=== PATIENT | female | born 1940 | race Hispanic/Latino ===

== ENCOUNTER 2016-11-08 19:45 | Emergency (ER) | payer MEDICARE, MEDICAID ==
[2016-11-08 21:14] LABS: CALCIUM LEVEL 9.2 MG/DL (8.8-10.2); CREATININE FOR GFR 1.34 MG/DL (0.55-1.02); GLOMERULAR FILTRATION RATE 40.7 (>39)
[2016-11-08 21:29] LABS: POTASSIUM SERUM 5.8 MEQ/L (3.5-5.1)
[2016-11-08] MEDS ORDERED: DEXTROSE 50% 50 ML SYRINGE As Ordered ONE ×2 (21:42→23:14)
[2016-11-08] MEDS ORDERED: HumuLIN R (REGULAR) INSULIN (NovoLIN R) **100U/ML** PER UNIT As Ordered ONE (21:43)
--- NOTE | 2016-11-08 22:08 | ECGEPIP ---
Stationary ECG Study [facility] - ED Test Date: 2016-11-08 Pat Name: WILD TRISTAN Department: Room: - Gender: F Counter Hop: JoB: 1940 Requested By: BAIRON BRYANT Order Number: [id number] Reading MD: Ervin Maxwell Measurements Intervals Newman Rate: 68 P: 70 SD: 142 QRS: 51 QRSD: 86 T: 88 QT: 365 QTc: 391 Interpretive Statements SINUS RHYTHM NONSPECIFIC T-WAVE ABNORMALITY Electronically Signed On 11-08-2016 22:07:29 EST by Ervin Maxwell
[2016-11-08] MEDS ORDERED: SOD POLYSTYRENE SULFONATE SUSP 15 GM/60 ML UD As Ordered ONE (22:55)
--- NOTE | 2016-11-09 01:12 | EDDOCDS ---
Nurse's Notes [facility] Name: Deedee Arreaga Age: 76 yrs Sex: Female : 1940 Arrival Date: 11/08/2016 Time: 19:45 Bed 8 Private MD: Unknown, Family Dr Diagnosis: Hyperkalemia Presentation: 11/08 19:52 Presenting complaint: pt's son states that she was seen at Dr. Barnard's office. Pt's ms18 potassium was high, 6.1 per pt's son. PT instructed to come here and be seen by ER staff. Adult Sepsis Screening: The patient does not have new or worsening altered mentation. Patient's respiratory rate is less than 22. Systolic blood pressure is greater than 100. Patient has a qSOFA score of 0- Negative Sepsis Screen. Suicide/Homicide risk assessment- the patient denies having any suicidal and/or homicidal ideations and does not present with any other emotional, behavioral or mental health complaints. Status: Patient is not a nutrition services worker or dependent. Transition of care: patient was not received from another setting of care. 19:52 Acuity: CINTHYA Level 3 ms18 19:52 Method Of Arrival: Walkin/Carried/Asstd ms18 Triage Assessment: 19:57 General: Appears in no apparent distress, comfortable, Behavior is appropriate for age, ms18 cooperative. Pain: Denies pain. Neurological: Level of Consciousness is awake, alert, obeys commands. Respiratory: Airway is patent Respiratory effort is even, unlabored. Derm: Skin is pink, warm & dry. normal. Historical: - Allergies: no known allergies; - Home Meds: 1. lisinopril 20 mg Oral tab 1 tab once daily 2. carvedilol 25 mg oral tab 1 tab daily 3. aspirin 81 mg Oral tab 1 tab once daily - PMHx: Hypertension; - PSHx: none; - Social history: Smoking status: Patient states former smoker of tobacco. Preferred Language: Luxembourgish. - Family history: No immediate family members are acutely ill. - : The pt / caregiver states he / she is not on anticoagulants. Home medication list is obtained from family members. - Exposure Risk Screening:: None identified. Screenin/24 00:57 Screening information is obtained from the patient, family members. Fall risk: No risks nn1 identified. Assistance ADL's: requires no assistance with activities of daily living. Abuse/DV Screen: The patient / caregiver reports he/she is: not in a situation that causes fear, pain or injury. Nutritional screening: No deficits noted. Advance Directives: Currently, there is no health care proxy. home support is adequate. Assessment: 11/08 20:42 General: Appears in no apparent distress, comfortable, Behavior is appropriate for age, nn1 cooperative, Family reports patients blood pressure is high due to anxiety. . Pain: Denies pain. Neurological: Level of Consciousness is awake, alert, obeys commands, Oriented to person, place, time. Cardiovascular: Capillary refill < 3 seconds Chest pain is denied. Respiratory: Airway is patent Respiratory effort is even, unlabored, Respiratory pattern is regular, symmetrical, Breath sounds are clear bilaterally. GI: Abdomen is non- distended Bowel sounds present X 4 quads. Denies nausea, vomiting. Derm: Skin is pink, warm & dry. 23:02 General: Appears in no apparent distress, comfortable, Behavior is appropriate for age, nn1 cooperative. General: Patient reports she is getting bilateral leg cramps. Fluids infusing per order. Patient given water to drink per provider. . Neurological: Level of Consciousness is awake, alert, obeys commands. Respiratory: Airway is patent Respiratory effort is even, unlabored, Respiratory pattern is regular, symmetrical. Derm: Skin is pink, warm & dry. 23:54 General: Blood drawn, patient assisted to restroom. Reports her legs continue to cramp. nn1 Patient made comfortable. . 11/09 00:27 General: Appears in no apparent distress, comfortable, Behavior is appropriate for age, nn1 cooperative. Neurological: Level of Consciousness is awake, alert, obeys commands. GI: Reports diarrhea. Derm: Skin is pink, warm & dry. 00:57 General: Appears in no apparent distress, comfortable, Behavior is appropriate for age, nn1 cooperative. Neurological: Level of Consciousness is awake, alert, obeys commands. Respiratory: Airway is patent Respiratory effort is even, unlabored, Respiratory pattern is regular, symmetrical. GI: Abdomen is non- distended Reports diarrhea. Derm: Skin is pink, warm & dry. Musculoskeletal: Circulation, motion, and sensation intact Range of motion intact in all extremities. Vital Signs: 11/08 19:47 BP 227 / 75; Pulse 84; Resp 18 S; Temp 97.1(O); Pulse Ox 100% on R/A; Weight 54.43 kg dd6 (R); Height 4 ft. 10 in. (147.32 cm) (R); 19:57 BP 192 / 74 (man/); ms18 20:29 BP 188 / 76 (auto/); nn1 20:29 Pulse 68 MON; Pulse Ox 100% ; nn1 20:44 BP 177 / 77 (auto/); nn1 20:44 Pulse 66 MON; Pulse Ox 99% ; nn1 20:59 BP 192 / 72 (auto/); nn1 20:59 Pulse 70 MON; Pulse Ox 100% ; nn1 21:14 BP 203 / 81 (auto/); nn1 21:14 Pulse 68 MON; Pulse Ox 99% ; nn1 21:18 BP 205 / 81 (auto/); nn1 21:18 Pulse 68 MON; Pulse Ox 99% ; nn1 21:22 BP 191 / 77 (auto/); nn1 21:22 Pulse 70 MON; Pulse Ox 99% ; nn1 11/09 01:08 Pulse 78; Resp 18; Temp 98.3(O); Pulse Ox 98% on R/A; Pain 0/10; nn1 01:10 BP 132 / 78 (man/); ning 11/08 19:47 Body Mass Index 25.08 (54.43 kg, 147.32 cm) dd6 Vitals: 11/08 19:47 Log In Time: November 08, 2016 at 19:45. dd6 ED Course: 19:46 Patient visited by Kaleb Nuñez PCA. dd6 19:46 Patient moved to Waiting dd6 19:47 Unknown, Family Dr is Private Physician. dd6 19:48 Patient moved to Pre RCE dd6 19:55 Triage Initiated ms18 20:01 Shikha Rosales,RN is Primary Nurse. pml 20:01 Patient moved to 8 pml 20:06 [facility] le 20:16 Patient visited by Nannette Lama PCA. ning 20:16 Pt greeted and oriented to ED. Patient advised of names of staff involved in care, ning location of call chau, wait times and NPO status. Accompanied by Family Member, Patient has correct armband on for positive identification. Placed in gown. Bed in low position. Call light in reach. Side rails up X2. craniologist on. Pulse ox on. NIBP on. 20:16 EKG done. (by ED staff). Reviewed by Candis BRYANT. ning 20:28 Patient visited by Candis Ashraf FNP. le 20:56 Inserted saline lock: 22 gauge in left antecubital area and blood collected. The nn1 patient tolerated the procedure well. 21:10 [facility] Payment Agreement was scanned into [employer] and attached to record. zo 21:28 Patient visited by Maryellen Eckert RN. nn1 22:08 EKG-ADULT Returned. EDMS 22:35 Inserted saline lock: 20 gauge in right hand. js15 22:40 Patient visited by Sarah Tobias RN. js15 22:48 Primary Nurse role handed off by Shikha Rosales RN ning 23:19 Patient visited by Maryellen Eckert RN. nn1 23:55 Patient visited by Maryellen Eckert RN. nn1 11/09 00:27 Patient visited by Maryellen Eckert RN. nn1 00:51 Faheem Xiong DO is Attending Physician. cs11 00:58 The patient / caregiver is instructed regarding the plan of care and ED course. nn1 00:58 No procedures done that require assistance. nn1 01:10 Patient visited by Nannette Lama PCA. ning Administered Medications: 11/08 21:45 Drug: Insulin Regular Human 10 units [insulin regular human 100 unit/mL injection nn1 solution (0.1 mL)] {Co-Signature: sls1 (Em Ontiveros RN).} Route: IVP; Site: left antecubital; 22:39 Drug: D50W 50 ml [dextrose 50 % in water (D50W) intravenous syringe (50 mL)] Route: js15 IVP; Site: right hand; 23:02 Drug: Polystyrene 30 grams [sodium polystyrene sulfonate 15 gram/60 mL oral suspension nn1 (120 mL)] Route: PO; 23:02 Drug: NS 0.9% 1000 ml [sodium chloride 0.9 % intravenous solution] Route: IV; Rate: nn1 bolus; Site: right hand; 23:18 Drug: D50W 50 ml [dextrose 50 % in water (D50W) intravenous syringe (50 mL)] Route: nn1 IVP; Site: right hand; Point of Care Testing: Blood Glucose: 23:18 Blood Glucose: 36 mg/dL; nn1 23:54 Blood Glucose: 78 mg/dL; nn1 Ranges: Order Results: Lab Order: BMP; SPEC'11/08/16 20:26 Test: GLUCOSE, FASTING; Value: 90; Range: 83-110; Units: MG/DL; Status: F Test: BLOOD UREA NITROGEN; Value: 34; Range: 7-18; Abnormal: Above high normal; Units: MG/DL; Status: F Test: CREATININE FOR GFR; Value: 1.34; Range: 0.55-1.02; Abnormal: Above high normal; Units: MG/DL; Status: F Test: GLOMERULAR FILTRATION RATE; Value: 40.7; Range: >39; Status: F Test: SODIUM LEVEL; Value: 142; Range: 136-145; Units: MEQ/L; Status: F Test: POTASSIUM SERUM; Value: 5.8; Range: 3.5-5.1; Abnormal: Above high normal; Units: MEQ/L; Status: F Test: CHLORIDE LEVEL; Value: 109; Range: 98-107; Abnormal: Above high normal; Units: MEQ/L; Status: F Test: CARBON DIOXIDE LEVEL; Value: 28; Range: 21-32; Units: MEQ/L; Status: F Test: ANION GAP; Value: 5; Range: 8-16; Abnormal: Below low normal; Units: MEQ/L; Status: F Test: CALCIUM LEVEL; Value: 9.2; Range: 8.8-10.2; Units: MG/DL; Status: F Test Note: ; Units are mL/min/1.73 m2 Chronic Kidney Disease Staging per NKF: Stage I & II GFR >=60 Normal to Mildly Decreased Stage III GFR 30-59 Moderately Decreased Stage IV GFR 15-29 Severely Decreased Stage V GFR <15 Very Little GFR Left ESRD GFR <15 on LUGGAGE LINER Lab Order: POTASSIUM LEVEL; SPEC'11/08/16 23:52 Test: POTASSIUM SERUM; Value: 4.7; Range: 3.5-5.1; Units: MEQ/L; Status: F Lab Order: Fingerstick Blood Sugar; SPEC'11/08/16 23:13 Test: BEDSIDE GLUCOSE; Value: 36; Range: 83-110; Abnormal: Critical Low; Units: MG/DL; Status: F Lab Order: Fingerstick Blood Sugar; SPEC'M 11/08/16 23:47 Test: BEDSIDE GLUCOSE; Value: 78; Range: 83-110; Abnormal: Below low normal; Units: MG/DL; Status: F Outcome: 11/09 00:51 Discharge ordered by Provider. 11 00:58 Discharge Assessment: Patient awake, alert and oriented x 3. No cognitive and/or nn1 functional deficits noted. Patient verbalized understanding of disposition instructions. patient administered narcotics - no. The following High Risk Discharge criteria are identified: None. Discharged to home ambulatory, with family. Condition: stable. No special radiology studies were completed. Property :Personal belongings accompany Pt. 01:11 Patient left the ED. nn1 Signatures: Dispatcher [employer] EDMS Yany Tan Lisa, SELF PAY SPECIALIST SELF PAY SPECIALIST le Kaleb Nuñez, ASTRONAUT MISSION SPECIALIST ASTRONAUT MISSION SPECIALIST dd6 Nannette Lama, ASTRONAUT MISSION SPECIALIST ASTRONAUT MISSION SPECIALIST ning Delmis Lion,RN RN Faheem Fairbanks, DO cs11 Adenike Michael RN RN ms18 Sarah Tobias RN RN js15 Maryellen EckertRN COLE nn1 Em Ontiveros RN sls1 Corrections: (The following items were deleted from the chart) 11/08 22:40 22:39 D50W 50 ml IVP in left hand js15 js15 MTDD
--- NOTE | 2016-11-09 01:12 | EDDOCDS ---
Physician Documentation [facility] Name: Deedee Arreaga Age: 76 yrs Sex: Female : 1940 Arrival Date: 11/08/2016 Time: 19:45 Bed 8 Private MD: Unknown, Family Dr Disposition: 11/09/16 00:51 Discharged to Home/Self Care. Impression: Hyperkalemia. - Condition is Stable. - Medication Reconciliation, Local Pharmacy Hours form. - Follow up: Private Physician; When: Call to arrange an appointment; Reason: Recheck today's complaints. - Problem is new. - Symptoms are resolved. Historical: - Allergies: no known allergies; - Home Meds: 1. lisinopril 20 mg Oral tab 1 tab once daily 2. carvedilol 25 mg oral tab 1 tab daily 3. aspirin 81 mg Oral tab 1 tab once daily - PMHx: Hypertension; - PSHx: none; - Social history: Smoking status: Patient states former smoker of tobacco. Preferred Language: Icelandic. - Family history: No immediate family members are acutely ill. - : The pt / caregiver states he / she is not on anticoagulants. Home medication list is obtained from family members. - Exposure Risk Screening:: None identified. Vital Signs: 11/08 19:47 BP 227 / 75; Pulse 84; Resp 18 S; Temp 97.1(O); Pulse Ox 100% on R/A; Weight 54.43 kg / dd6 120 lbs (R); Height 4 ft. 10 in. (147.32 cm) (R); 19:57 BP 192 / 74 (man/); ms18 20:29 BP 188 / 76 (auto/); nn1 20:29 Pulse 68 MON; Pulse Ox 100% ; nn1 20:44 BP 177 / 77 (auto/); nn1 20:44 Pulse 66 MON; Pulse Ox 99% ; nn1 20:59 BP 192 / 72 (auto/); nn1 20:59 Pulse 70 MON; Pulse Ox 100% ; nn1 21:14 BP 203 / 81 (auto/); nn1 21:14 Pulse 68 MON; Pulse Ox 99% ; nn1 21:18 BP 205 / 81 (auto/); nn1 21:18 Pulse 68 MON; Pulse Ox 99% ; nn1 21:22 BP 191 / 77 (auto/); nn1 21:22 Pulse 70 MON; Pulse Ox 99% ; nn1 11/09 01:08 Pulse 78; Resp 18; Temp 98.3(O); Pulse Ox 98% on R/A; Pain 0/10; nn1 01:10 BP 132 / 78 (man/); ning 11/08 19:47 Body Mass Index 25.08 (54.43 kg, 147.32 cm) dd6 MDM: 11/08 20:07 IV Saline Lock ordered. le 20:10 BMP Ordered. EDMS 20:10 ECG WITH READING ER PHYS+CARDIAG ordered. EDMS 21:07 Financial registration complete. zo 21:10 [facility] Payment Agreement was scanned into [employer] and attached to record. zo 21:35 BMP Reviewed. le 21:36 D50W 50 ml IVP once; (1 amp) ordered. le 21:36 Insulin Regular Human 10 units IVP once ordered. le 21:36 Polystyrene Suspension 30 grams PO once ordered. le 22:58 NS 0.9% 1000 ml IV at bolus once ordered. le 22:59 Accucheck ordered. le 23:06 [facility] ordered. le 23:14 D50W 50 ml IVP once; (1 amp) ordered. le 23:14 [facility] complete. tmm1 23:15 POTASSIUM LEVEL Ordered. EDMS 23:32 Fingerstick Blood Sugar Reviewed. le 23:33 Accucheck ordered. le 23:35 2 GRAM SODIUM+DIET ordered. EDMS 23:59 Fingerstick Blood Sugar Ordered. EDMS 11/09 00:03 Fingerstick Blood Sugar Reviewed. le 00:49 POTASSIUM LEVEL Reviewed. cs11 Point of Care Testing: Blood Glucose: 11/08 23:18 Blood Glucose: 36 mg/dL; nn1 23:54 Blood Glucose: 78 mg/dL; nn1 Ranges: Administered Medications: 21:45 Drug: Insulin Regular Human 10 units [insulin regular human 100 unit/mL injection nn1 solution (0.1 mL)] {Co-Signature: sls1 (Em Ontiveros RN).} Route: IVP; Site: left antecubital; 22:39 Drug: D50W 50 ml [dextrose 50 % in water (D50W) intravenous syringe (50 mL)] Route: js15 IVP; Site: right hand; 23:02 Drug: Polystyrene 30 grams [sodium polystyrene sulfonate 15 gram/60 mL oral suspension nn1 (120 mL)] Route: PO; 23:02 Drug: NS 0.9% 1000 ml [sodium chloride 0.9 % intravenous solution] Route: IV; Rate: nn1 bolus; Site: right hand; 23:18 Drug: D50W 50 ml [dextrose 50 % in water (D50W) intravenous syringe (50 mL)] Route: nn1 IVP; Site: right hand; Signatures: Dispatcher [employer] EDMS Yany Tan Lisa, WEATHER FORECASTER WEATHER FORECASTER Faheem Kelley DO DO cs11 McLear, Etelvina, VAULT MANAGER VAULT MANAGER tmm1 Adenike Michael RN RN ms18 Maryellen Eckert RN RN nn1 Sarah Tobias RN js15 Em Ontiveros RN sls1 The chart was reviewed and I authenticate all verbal orders and agree with the evaluation and treatment provided.Attachments: 21:10 [facility] Payment Agreement zo MTDD
[2016-11-10] MEDS ORDERED: LISI-538 PO (11:05)
[2016-11-10] MEDS ORDERED: CARV12.5 PO (11:05)
--- NOTE | 2016-11-11 02:13 | EDDOCDS ---
Physician Documentation [facility] Name: Deedee Arreaga Age: 76 yrs Sex: Female : 1940 Arrival Date: 11/08/2016 Time: 19:45 Bed 8 Private MD: Unknown, Family Dr Disposition: 11/09/16 00:51 Discharged to Home/Self Care. Impression: Hyperkalemia. - Condition is Stable. - Medication Reconciliation, Local Pharmacy Hours form. - Follow up: Private Physician; When: Call to arrange an appointment; Reason: Recheck today's complaints. - Problem is new. - Symptoms are resolved. Historical: - Allergies: no known allergies; - Home Meds: 1. lisinopril 20 mg Oral tab 1 tab once daily 2. carvedilol 25 mg oral tab 1 tab daily 3. aspirin 81 mg Oral tab 1 tab once daily - PMHx: Hypertension; - PSHx: none; - Social history: Smoking status: Patient states former smoker of tobacco. Preferred Language: Kittitian. - Family history: No immediate family members are acutely ill. - : The pt / caregiver states he / she is not on anticoagulants. Home medication list is obtained from family members. - Exposure Risk Screening:: None identified. Vital Signs: 11/08 19:47 BP 227 / 75; Pulse 84; Resp 18 S; Temp 97.1(O); Pulse Ox 100% on R/A; Weight 54.43 kg / dd6 120 lbs (R); Height 4 ft. 10 in. (147.32 cm) (R); 19:57 BP 192 / 74 (man/); ms18 20:29 BP 188 / 76 (auto/); nn1 20:29 Pulse 68 MON; Pulse Ox 100% ; nn1 20:44 BP 177 / 77 (auto/); nn1 20:44 Pulse 66 MON; Pulse Ox 99% ; nn1 20:59 BP 192 / 72 (auto/); nn1 20:59 Pulse 70 MON; Pulse Ox 100% ; nn1 21:14 BP 203 / 81 (auto/); nn1 21:14 Pulse 68 MON; Pulse Ox 99% ; nn1 21:18 BP 205 / 81 (auto/); nn1 21:18 Pulse 68 MON; Pulse Ox 99% ; nn1 21:22 BP 191 / 77 (auto/); nn1 21:22 Pulse 70 MON; Pulse Ox 99% ; nn1 11/09 01:08 Pulse 78; Resp 18; Temp 98.3(O); Pulse Ox 98% on R/A; Pain 0/10; nn1 01:10 BP 132 / 78 (man/); ning 11/08 19:47 Body Mass Index 25.08 (54.43 kg, 147.32 cm) dd6 MDM: 11/08 20:07 IV Saline Lock ordered. le 20:10 BMP Ordered. EDMS 20:10 ECG WITH READING ER PHYS+CARDIAG ordered. EDMS 21:07 Financial registration complete. zo 21:10 [facility] Payment Agreement was scanned into [employer] and attached to record. zo 21:35 BMP Reviewed. le 21:36 D50W 50 ml IVP once; (1 amp) ordered. le 21:36 Insulin Regular Human 10 units IVP once ordered. le 21:36 Polystyrene Suspension 30 grams PO once ordered. le 22:58 NS 0.9% 1000 ml IV at bolus once ordered. le 22:59 Accucheck ordered. le 23:06 [facility] ordered. le 23:14 D50W 50 ml IVP once; (1 amp) ordered. le 23:14 [facility] complete. tmm1 23:15 POTASSIUM LEVEL Ordered. EDMS 23:32 Fingerstick Blood Sugar Reviewed. le 23:33 Accucheck ordered. le 23:35 2 GRAM SODIUM+DIET ordered. EDMS 23:59 Fingerstick Blood Sugar Ordered. EDMS 11/09 00:03 Fingerstick Blood Sugar Reviewed. le 00:49 POTASSIUM LEVEL Reviewed. cs11 11:07 T-Sheet-- Draft Copy was scanned into [employer] and attached to record. gb 11:07 ECG/EKG was scanned into [employer] and attached to record. gb Point of Care Testing: Blood Glucose: 11/08 23:18 Blood Glucose: 36 mg/dL; nn1 23:54 Blood Glucose: 78 mg/dL; nn1 Ranges: Administered Medications: 21:45 Drug: Insulin Regular Human 10 units [insulin regular human 100 unit/mL injection nn1 solution (0.1 mL)] {Co-Signature: sls1 (Em Ontiveros RN).} Route: IVP; Site: left antecubital; 22:39 Drug: D50W 50 ml [dextrose 50 % in water (D50W) intravenous syringe (50 mL)] Route: js15 IVP; Site: right hand; 23:02 Drug: Polystyrene 30 grams [sodium polystyrene sulfonate 15 gram/60 mL oral suspension nn1 (120 mL)] Route: PO; 23:02 Drug: NS 0.9% 1000 ml [sodium chloride 0.9 % intravenous solution] Route: IV; Rate: nn1 bolus; Site: right hand; 11/09 01:12 Follow up: IV Status: Infusion discontinued; IV Intake: 100ml nn1 11/08 23:18 Drug: D50W 50 ml [dextrose 50 % in water (D50W) intravenous syringe (50 mL)] Route: nn1 IVP; Site: right hand; Signatures: Dispatcher [employer] EDMS Ratna Rose, Reg Reg gb Dominick, Zoeann zo Candis Ashraf, STOCK CHASER STOCK CHASER Faheem Kelley, DO cs11 McLear, Etelvina, MANAGER SOFTWARE MANAGER SOFTWARE tmm1 Adenike Michael,COLE RN ms18 Maryellen Eckert RN RN nn1 Sarah Tobias RN js15 Em Ontiveros RN sls1 The chart was reviewed and I authenticate all verbal orders and agree with the evaluation and treatment provided.Attachments: 21:10 [facility] Payment Agreement zo 11/09 11:07 T-Sheet-- Draft Copy gb 11:07 ECG/EKG Chart Complete MTDD
--- NOTE | 2016-11-11 02:13 | EDDOCDS ---
Physician Documentation [facility] Name: Deedee Arreaga Age: 76 yrs Sex: Female : 1940 Arrival Date: 11/08/2016 Time: 19:45 Bed 8 Private MD: Unknown, Family Dr Disposition: 11/09/16 00:51 Discharged to Home/Self Care. Impression: Hyperkalemia. - Condition is Stable. - Medication Reconciliation, Local Pharmacy Hours form. - Follow up: Private Physician; When: Call to arrange an appointment; Reason: Recheck today's complaints. - Problem is new. - Symptoms are resolved. Historical: - Allergies: no known allergies; - Home Meds: 1. lisinopril 20 mg Oral tab 1 tab once daily 2. carvedilol 25 mg oral tab 1 tab daily 3. aspirin 81 mg Oral tab 1 tab once daily - PMHx: Hypertension; - PSHx: none; - Social history: Smoking status: Patient states former smoker of tobacco. Preferred Language: Jamaican. - Family history: No immediate family members are acutely ill. - : The pt / caregiver states he / she is not on anticoagulants. Home medication list is obtained from family members. - Exposure Risk Screening:: None identified. Vital Signs: 11/08 19:47 BP 227 / 75; Pulse 84; Resp 18 S; Temp 97.1(O); Pulse Ox 100% on R/A; Weight 54.43 kg / dd6 120 lbs (R); Height 4 ft. 10 in. (147.32 cm) (R); 19:57 BP 192 / 74 (man/); ms18 20:29 BP 188 / 76 (auto/); nn1 20:29 Pulse 68 MON; Pulse Ox 100% ; nn1 20:44 BP 177 / 77 (auto/); nn1 20:44 Pulse 66 MON; Pulse Ox 99% ; nn1 20:59 BP 192 / 72 (auto/); nn1 20:59 Pulse 70 MON; Pulse Ox 100% ; nn1 21:14 BP 203 / 81 (auto/); nn1 21:14 Pulse 68 MON; Pulse Ox 99% ; nn1 21:18 BP 205 / 81 (auto/); nn1 21:18 Pulse 68 MON; Pulse Ox 99% ; nn1 21:22 BP 191 / 77 (auto/); nn1 21:22 Pulse 70 MON; Pulse Ox 99% ; nn1 11/09 01:08 Pulse 78; Resp 18; Temp 98.3(O); Pulse Ox 98% on R/A; Pain 0/10; nn1 01:10 BP 132 / 78 (man/); ning 11/08 19:47 Body Mass Index 25.08 (54.43 kg, 147.32 cm) dd6 MDM: 11/08 20:07 IV Saline Lock ordered. le 20:10 BMP Ordered. EDMS 20:10 ECG WITH READING ER PHYS+CARDIAG ordered. EDMS 21:07 Financial registration complete. zo 21:10 [facility] Payment Agreement was scanned into [employer] and attached to record. zo 21:35 BMP Reviewed. le 21:36 D50W 50 ml IVP once; (1 amp) ordered. le 21:36 Insulin Regular Human 10 units IVP once ordered. le 21:36 Polystyrene Suspension 30 grams PO once ordered. le 22:58 NS 0.9% 1000 ml IV at bolus once ordered. le 22:59 Accucheck ordered. le 23:06 [facility] ordered. le 23:14 D50W 50 ml IVP once; (1 amp) ordered. le 23:14 [facility] complete. tmm1 23:15 POTASSIUM LEVEL Ordered. EDMS 23:32 Fingerstick Blood Sugar Reviewed. le 23:33 Accucheck ordered. le 23:35 2 GRAM SODIUM+DIET ordered. EDMS 23:59 Fingerstick Blood Sugar Ordered. EDMS 11/09 00:03 Fingerstick Blood Sugar Reviewed. le 00:49 POTASSIUM LEVEL Reviewed. cs11 11:07 T-Sheet-- Draft Copy was scanned into [employer] and attached to record. gb 11:07 ECG/EKG was scanned into [employer] and attached to record. gb Point of Care Testing: Blood Glucose: 11/08 23:18 Blood Glucose: 36 mg/dL; nn1 23:54 Blood Glucose: 78 mg/dL; nn1 Ranges: Administered Medications: 21:45 Drug: Insulin Regular Human 10 units [insulin regular human 100 unit/mL injection nn1 solution (0.1 mL)] {Co-Signature: sls1 (Em Ontiveros RN).} Route: IVP; Site: left antecubital; 22:39 Drug: D50W 50 ml [dextrose 50 % in water (D50W) intravenous syringe (50 mL)] Route: js15 IVP; Site: right hand; 23:02 Drug: Polystyrene 30 grams [sodium polystyrene sulfonate 15 gram/60 mL oral suspension nn1 (120 mL)] Route: PO; 23:02 Drug: NS 0.9% 1000 ml [sodium chloride 0.9 % intravenous solution] Route: IV; Rate: nn1 bolus; Site: right hand; 11/09 01:12 Follow up: IV Status: Infusion discontinued; IV Intake: 100ml nn1 11/08 23:18 Drug: D50W 50 ml [dextrose 50 % in water (D50W) intravenous syringe (50 mL)] Route: nn1 IVP; Site: right hand; Signatures: Dispatcher [employer] EDMS Ranta Rose, Reg Reg gb Dominick, Zoeann zo Candis Ashraf, ASSOCIATE ORACLE RETAIL ASSOCIATE ORACLE RETAIL Faheem Kelley, DO cs11 McLear, Etelvina, TAX AUDITOR TAX AUDITOR tmm1 Adenike Michael,COLE RN ms18 Maryellen Eckert RN RN nn1 Sarah Tobias RN js15 Em Ontiveros RN sls1 The chart was reviewed and I authenticate all verbal orders and agree with the evaluation and treatment provided.Attachments: 21:10 [facility] Payment Agreement zo 11/09 11:07 T-Sheet-- Draft Copy gb 11:07 ECG/EKG Chart Complete MTDD
--- NOTE | 2016-11-11 02:14 | EDDOCDS ---
Nurse's Notes [facility] Name: Deedee Arreaga Age: 76 yrs Sex: Female : 1940 Arrival Date: 11/08/2016 Time: 19:45 Bed 8 Private MD: Unknown, Family Dr Diagnosis: Hyperkalemia Presentation: 11/08 19:52 Presenting complaint: pt's son states that she was seen at Dr. Barnard's office. Pt's ms18 potassium was high, 6.1 per pt's son. PT instructed to come here and be seen by ER staff. Adult Sepsis Screening: The patient does not have new or worsening altered mentation. Patient's respiratory rate is less than 22. Systolic blood pressure is greater than 100. Patient has a qSOFA score of 0- Negative Sepsis Screen. Suicide/Homicide risk assessment- the patient denies having any suicidal and/or homicidal ideations and does not present with any other emotional, behavioral or mental health complaints. Status: Patient is not a branch service leader or dependent. Transition of care: patient was not received from another setting of care. 19:52 Acuity: CINTHYA Level 3 ms18 19:52 Method Of Arrival: Walkin/Carried/Asstd ms18 Triage Assessment: 19:57 General: Appears in no apparent distress, comfortable, Behavior is appropriate for age, ms18 cooperative. Pain: Denies pain. Neurological: Level of Consciousness is awake, alert, obeys commands. Respiratory: Airway is patent Respiratory effort is even, unlabored. Derm: Skin is pink, warm & dry. normal. Historical: - Allergies: no known allergies; - Home Meds: 1. lisinopril 20 mg Oral tab 1 tab once daily 2. carvedilol 25 mg oral tab 1 tab daily 3. aspirin 81 mg Oral tab 1 tab once daily - PMHx: Hypertension; - PSHx: none; - Social history: Smoking status: Patient states former smoker of tobacco. Preferred Language: Greek. - Family history: No immediate family members are acutely ill. - : The pt / caregiver states he / she is not on anticoagulants. Home medication list is obtained from family members. - Exposure Risk Screening:: None identified. Screenin/24 00:57 Screening information is obtained from the patient, family members. Fall risk: No risks nn1 identified. Assistance ADL's: requires no assistance with activities of daily living. Abuse/DV Screen: The patient / caregiver reports he/she is: not in a situation that causes fear, pain or injury. Nutritional screening: No deficits noted. Advance Directives: Currently, there is no health care proxy. home support is adequate. Assessment: 11/08 20:42 General: Appears in no apparent distress, comfortable, Behavior is appropriate for age, nn1 cooperative, Family reports patients blood pressure is high due to anxiety. . Pain: Denies pain. Neurological: Level of Consciousness is awake, alert, obeys commands, Oriented to person, place, time. Cardiovascular: Capillary refill < 3 seconds Chest pain is denied. Respiratory: Airway is patent Respiratory effort is even, unlabored, Respiratory pattern is regular, symmetrical, Breath sounds are clear bilaterally. GI: Abdomen is non- distended Bowel sounds present X 4 quads. Denies nausea, vomiting. Derm: Skin is pink, warm & dry. 23:02 General: Appears in no apparent distress, comfortable, Behavior is appropriate for age, nn1 cooperative. General: Patient reports she is getting bilateral leg cramps. Fluids infusing per order. Patient given water to drink per provider. . Neurological: Level of Consciousness is awake, alert, obeys commands. Respiratory: Airway is patent Respiratory effort is even, unlabored, Respiratory pattern is regular, symmetrical. Derm: Skin is pink, warm & dry. 23:54 General: Blood drawn, patient assisted to restroom. Reports her legs continue to cramp. nn1 Patient made comfortable. . 11/09 00:27 General: Appears in no apparent distress, comfortable, Behavior is appropriate for age, nn1 cooperative. Neurological: Level of Consciousness is awake, alert, obeys commands. GI: Reports diarrhea. Derm: Skin is pink, warm & dry. 00:57 General: Appears in no apparent distress, comfortable, Behavior is appropriate for age, nn1 cooperative. Neurological: Level of Consciousness is awake, alert, obeys commands. Respiratory: Airway is patent Respiratory effort is even, unlabored, Respiratory pattern is regular, symmetrical. GI: Abdomen is non- distended Reports diarrhea. Derm: Skin is pink, warm & dry. Musculoskeletal: Circulation, motion, and sensation intact Range of motion intact in all extremities. Vital Signs: 11/08 19:47 BP 227 / 75; Pulse 84; Resp 18 S; Temp 97.1(O); Pulse Ox 100% on R/A; Weight 54.43 kg dd6 (R); Height 4 ft. 10 in. (147.32 cm) (R); 19:57 BP 192 / 74 (man/); ms18 20:29 BP 188 / 76 (auto/); nn1 20:29 Pulse 68 MON; Pulse Ox 100% ; nn1 20:44 BP 177 / 77 (auto/); nn1 20:44 Pulse 66 MON; Pulse Ox 99% ; nn1 20:59 BP 192 / 72 (auto/); nn1 20:59 Pulse 70 MON; Pulse Ox 100% ; nn1 21:14 BP 203 / 81 (auto/); nn1 21:14 Pulse 68 MON; Pulse Ox 99% ; nn1 21:18 BP 205 / 81 (auto/); nn1 21:18 Pulse 68 MON; Pulse Ox 99% ; nn1 21:22 BP 191 / 77 (auto/); nn1 21:22 Pulse 70 MON; Pulse Ox 99% ; nn1 11/09 01:08 Pulse 78; Resp 18; Temp 98.3(O); Pulse Ox 98% on R/A; Pain 0/10; nn1 01:10 BP 132 / 78 (man/); ning 11/08 19:47 Body Mass Index 25.08 (54.43 kg, 147.32 cm) dd6 Vitals: 11/08 19:47 Log In Time: November 08, 2016 at 19:45. dd6 ED Course: 19:46 Patient visited by Kaleb Nuñez PCA. dd6 19:46 Patient moved to Waiting dd6 19:47 Unknown, Family Dr is Private Physician. dd6 19:48 Patient moved to Pre RCE dd6 19:55 Triage Initiated ms18 20:01 Shikha Rosales,RN is Primary Nurse. pml 20:01 Patient moved to 8 pml 20:06 [facility]raf F[facility]. le 20:16 Patient visited by Nannette Lama PCA. ning 20:16 Pt greeted and oriented to ED. Patient advised of names of staff involved in care, ning location of call chau, wait times and NPO status. Accompanied by Family Member, Patient has correct armband on for positive identification. Placed in gown. Bed in low position. Call light in reach. Side rails up X2. french teacher on. Pulse ox on. NIBP on. 20:16 EKG done. (by ED staff). Reviewed by Candis BRYANT. ning 20:28 Patient visited by Candis Ashraf FNP. le 20:56 Inserted saline lock: 22 gauge in left antecubital area and blood collected. The nn1 patient tolerated the procedure well. 21:10 [facility] Payment Agreement was scanned into [employer] and attached to record. zo 21:28 Patient visited by Maryellen Eckert RN. nn1 22:08 EKG-ADULT Returned. EDMS 22:35 Inserted saline lock: 20 gauge in right hand. js15 22:40 Patient visited by Sarah Tobias RN. js15 22:48 Primary Nurse role handed off by Shikha Rosales RN ning 23:19 Patient visited by Maryellen Eckert RN. nn1 23:55 Patient visited by Maryellen Eckert RN. nn1 11/09 00:27 Patient visited by Maryellen Eckert RN. nn1 00:51 Faheem Xiong DO is Attending Physician. cs11 00:58 The patient / caregiver is instructed regarding the plan of care and ED course. nn1 00:58 No procedures done that require assistance. nn1 01:10 Patient visited by Nannette Lama PCA. ning 11:07 T-Sheet-- Draft Copy was scanned into [employer] and attached to record. gb 11:07 ECG/EKG was scanned into [employer] and attached to record. gb Administered Medications: 11/08 21:45 Drug: Insulin Regular Human 10 units [insulin regular human 100 unit/mL injection nn1 solution (0.1 mL)] {Co-Signature: sls1 (Em Ontiveros RN).} Route: IVP; Site: left antecubital; 22:39 Drug: D50W 50 ml [dextrose 50 % in water (D50W) intravenous syringe (50 mL)] Route: js15 IVP; Site: right hand; 23:02 Drug: Polystyrene 30 grams [sodium polystyrene sulfonate 15 gram/60 mL oral suspension nn1 (120 mL)] Route: PO; 23:02 Drug: NS 0.9% 1000 ml [sodium chloride 0.9 % intravenous solution] Route: IV; Rate: nn1 bolus; Site: right hand; 11/09 01:12 Follow up: IV Status: Infusion discontinued; IV Intake: 100ml 1 11/08 23:18 Drug: D50W 50 ml [dextrose 50 % in water (D50W) intravenous syringe (50 mL)] Route: nn1 IVP; Site: right hand; Point of Care Testing: Blood Glucose: 23:18 Blood Glucose: 36 mg/dL; nn1 23:54 Blood Glucose: 78 mg/dL; nn1 Ranges: Intake: 11/09 01:12 IV: 100.00ml; Total: 100.00ml. Order Results: Lab Order: MARICEL; SPEC'M 11/08/16 20:26 Test: GLUCOSE, FASTING; Value: 90; Range: 83-110; Units: MG/DL; Status: F Test: BLOOD UREA NITROGEN; Value: 34; Range: 7-18; Abnormal: Above high normal; Units: MG/DL; Status: F Test: CREATININE FOR GFR; Value: 1.34; Range: 0.55-1.02; Abnormal: Above high normal; Units: MG/DL; Status: F Test: GLOMERULAR FILTRATION RATE; Value: 40.7; Range: >39; Status: F Test: SODIUM LEVEL; Value: 142; Range: 136-145; Units: MEQ/L; Status: F Test: POTASSIUM SERUM; Value: 5.8; Range: 3.5-5.1; Abnormal: Above high normal; Units: MEQ/L; Status: F Test: CHLORIDE LEVEL; Value: 109; Range: 98-107; Abnormal: Above high normal; Units: MEQ/L; Status: F Test: CARBON DIOXIDE LEVEL; Value: 28; Range: 21-32; Units: MEQ/L; Status: F Test: ANION GAP; Value: 5; Range: 8-16; Abnormal: Below low normal; Units: MEQ/L; Status: F Test: CALCIUM LEVEL; Value: 9.2; Range: 8.8-10.2; Units: MG/DL; Status: F Test Note: ; Units are mL/min/1.73 m2 Chronic Kidney Disease Staging per NKF: Stage I & II GFR >=60 Normal to Mildly Decreased Stage III GFR 30-59 Moderately Decreased Stage IV GFR 15-29 Severely Decreased Stage V GFR <15 Very Little GFR Left ESRD GFR <15 on CUTTER INSPECTOR Lab Order: POTASSIUM LEVEL; SPEC'M 11/08/16 23:52 Test: POTASSIUM SERUM; Value: 4.7; Range: 3.5-5.1; Units: MEQ/L; Status: F Lab Order: Fingerstick Blood Sugar; SPEC'M 11/08/16 23:13 Test: BEDSIDE GLUCOSE; Value: 36; Range: 83-110; Abnormal: Critical Low; Units: MG/DL; Status: F Lab Order: Fingerstick Blood Sugar; SPEC'M 11/08/16 23:47 Test: BEDSIDE GLUCOSE; Value: 78; Range: 83-110; Abnormal: Below low normal; Units: MG/DL; Status: F Outcome: 00:51 Discharge ordered by Provider. cs11 00:58 Discharge Assessment: Patient awake, alert and oriented x 3. No cognitive and/or nn1 functional deficits noted. Patient verbalized understanding of disposition instructions. patient administered narcotics - no. The following High Risk Discharge criteria are identified: None. Discharged to home ambulatory, with family. Condition: stable. No special radiology studies were completed. Property :Personal belongings accompany Pt. 01:11 Patient left the ED. nn1 Signatures: Dispatcher [employer] EDMS Ratna Rose, Rob Reg Yany Junior Lisa, PHARMACY ASSOCIATE PHARMACY ASSOCIATE Kaleb Portillo, CLINICAL TRIAL ASSOCIATE CLINICAL TRIAL ASSOCIATE dd6 Nannette Lama, CLINICAL TRIAL ASSOCIATE CLINICAL TRIAL ASSOCIATE ning Delmis Lion,RN Faheem Herndon, DO DO cs11 Adenike Michael RN RN ms18 Sarah Tobias RN RN js15 Maryellen Eckert RN RN nn1 Em Ontiveros RN sls1 Corrections: (The following items were deleted from the chart) 11/08 22:40 22:39 D50W 50 ml IVP in left hand ava js15 Chart Complete MTDD
== END 2016-11-09 01:11 | disposition home or self-care (01) ==
LOC: M ED 19:45
DX: E87.6 Hypokalemia (principal); I10 Essential (primary) hypertension; Z87.891 Personal history of nicotine dependence; Z79.82 Long term (current) use of aspirin; Z79.899 Other long term (current) drug therapy
CPT/HCPCS: 36415; 80048; 82043; 84132; 93005; 99285; G0463

== ENCOUNTER → 2016-11-08 | Outpatient (REF) | payer MEDICARE, MEDICAID ==
[~2016-11-08] MED LIST: CARV12.5 PO; LISI-538 PO
[2016-11-08 10:48] LABS: CALCIUM LEVEL 9.6 MG/DL (8.8-10.2); CREATININE FOR GFR 1.24 MG/DL (0.55-1.02); GLOMERULAR FILTRATION RATE 44.5 (>39)
== END ==
LOC: M SFHCPLAZ 08:37
PROVIDERS: ATTEND Family Medicine
DX: I10 Essential (primary) hypertension (principal)

== ENCOUNTER → 2016-11-08 | Outpatient (CLI) | payer MEDICARE, MEDICAID | LOC: M LAB 18:50 | PROVIDERS: ATTEND Family Medicine | DX: R89.9 Unspecified abnormal finding in specimens from other organs, systems and tissues (principal) ==

== ENCOUNTER → 2016-11-15 | Outpatient (REF) | payer MEDICARE, MEDICAID ==
[2016-11-15 13:45] LABS: CALCIUM LEVEL 9.6 MG/DL (8.8-10.2); CREATININE FOR GFR 1.1 MG/DL (0.55-1.02); GLOMERULAR FILTRATION RATE 51.1 (>39); POTASSIUM SERUM 5.1 MEQ/L (3.5-5.1); URIC ACID 8.6 MG/DL (2.6-6.0)
== END ==
LOC: M SFHCPLAZ 11:35
PROVIDERS: ATTEND Family Medicine
DX: I10 Essential (primary) hypertension (principal)
CPT/HCPCS: 80048; 81001; 82043; 84550; G0463

== ENCOUNTER → 2016-11-17 | Day surgery (SDC) | payer MEDICARE, MEDICAID ==
[~2016-11-17] VITALS: Ht 139.7 cm; Wt 56.7 kg
[~2016-11-17] MED LIST changes: +ACETAMINOPHEN 325 MG TAB PO PRN; +AcetaZOLAMIDE 500 MG ER CAP PO ONE; +BSS with VANC/TOB/EPI for EYE CASES IR ONE; +CYCLOPENTOLATE 2% OPHTH SOLN OD ONE; +D5W/0.2% SODIUM CHLORIDE 250 ML IV SCH; +HEALON DUET (HEALON 10MG/ML 0.55ML & HEALON ENDOCOAT 30MG/ML 0.85ML) As Ordered ONE; +HEALON DUET (HEALON 10MG/ML 0.55ML & HEALON ENDOCOAT 30MG/ML 0.85ML) XX ONE; +KETOROLAC 0.5% OPHTH SOLN OD ONE; +LIDOCAINE 1% SDV 5 ML VIAL As Ordered ONE; +LIDOCAINE 1% SDV 5 ML VIAL XX ONE; +LIDOCAINE 4% INJ 5 ML AMP OU ONE; +LIDOCAINE W/EPINEPHRINE 1% 20ML VIAL XX ONE; +MIDAZOLAM INJ 2 MG/2 ML VIAL (J2250) As Ordered ONE; +MOXIFLOXACIN IN BSS 0.25MG/0.25ML INTRACAMERAL INJ (OR EYE ONLY)(J2280) As Ordered ONE; +MOXIFLOXACIN IN BSS 0.25MG/0.25ML INTRACAMERAL INJ (OR EYE ONLY)(J2280) ICAM ONE; +OFLOXACIN 0.3 % (OCUFLOX) OPTH SOL 5ML OD ONE; +PHENYLEPHRINE 2.5% OPHTH SOL 2ML OD ONE; +POVIDONE-IODINE 5% OPHTH PREP SOL 30ML As Ordered ONE; +PROPARACAINE 0.5% OPHTH SOL 15ML OD PRN; +TRIAMCINOLONE PRES FR 40 MG/ML 1ML(TRIESENCE)(OR EYE ONLY)(J3300 PER 1MG) As Ordered ONE; +TRIAMCINOLONE PRES FR 40 MG/ML 1ML(TRIESENCE)(OR EYE ONLY)(J3300 PER 1MG) IO ONE; +TRIMETHOBENZAMIDE 300 MG CAP PO PRN; +TROPICAMIDE 1% OPHTH SOLN 2 ML OD ONE; +fentaNYL 100 MCG/2 ML INJECTION (J3010) As Ordered ONE
[2016-11-17 12:27] VITALS: BP 170/62
--- NOTE | 2016-11-17 13:06 | RO ---
DATE OF PROCEDURE: 11/17/2016 PREPROCEDURE DIAGNOSIS: Cataract of right eye. POSTPROCEDURE DIAGNOSIS: Cataract of right eye. PROCEDURE: Femtosecond laser and phacoemulsification of the intraocular lens with lens implantation right eye. Intraocular lens power used was PCB00, power 25 diopter. SURGEON: Faby Patterson MD NEON GLASS BENDER: None. ANESTHESIA: Local IV standby. FINDINGS: Cataract of right eye. COMPLICATIONS: None. DESCRIPTION OF PROCEDURE: The patient was brought to the operating room and laid in supine position. A lid speculum was placed, and patient was brought under the femtosecond laser. After the satisfactory placement of the patient interface, primary incision, secondary incision, and arcuate incisions with lens fragmentation was done without any complication per plan. The patients interface was then removed and lid speculum removed. Patient was placed under the microscope. The eye was prepped and draped in a sterile fashion for ophthalmic surgery. Lid speculum was placed. The secondary incision was opened, and EndoCoat was injected into the anterior chamber. The temporal clear corneal incision was then opened and capsulorrhexis removed, followed by hydrodissection. This was followed by phacoemulsification of the lens within the capsular bag. Cortical material was then aspirated, and Healon was injected into the capsular bag. Intraocular lens was then placed. Excess Healon was aspirated. Wound was hydrated. The lid speculum was removed, and patient was returned to the recovery room in stable condition.
== END | disposition home or self-care (01) ==
LOC: M SDC 08:51
PROVIDERS: ATTEND Ophthalmology
DX: H26.9 Unspecified cataract (principal); E11.22 Type 2 diabetes mellitus with diabetic chronic kidney disease; I13.10 Hypertensive heart and chronic kidney disease without heart failure, with stage 1 through stage 4 chronic kidney disease, or unspecified chronic kidney disease; N18.3 Chronic kidney disease, stage 3 (moderate); M19.90 Unspecified osteoarthritis, unspecified site; Z79.899 Other long term (current) drug therapy; Z79.82 Long term (current) use of aspirin; Z87.891 Personal history of nicotine dependence
CPT/HCPCS: 66984; J2250; J2280; J3010; J3300; V2632

== ENCOUNTER → 2016-12-15 | Day surgery (SDC) | payer MEDICARE, MEDICAID ==
[~2016-12-15] VITALS: Ht 137.2 cm; Wt 59.0 kg
[~2016-12-15] MED LIST changes: -CYCLOPENTOLATE 2% OPHTH SOLN OD ONE; +CYCLOPENTOLATE 2% OPHTH SOLN OS ONE; -D5W/0.2% SODIUM CHLORIDE 250 ML IV SCH; -HEALON DUET (HEALON 10MG/ML 0.55ML & HEALON ENDOCOAT 30MG/ML 0.85ML) As Ordered ONE; -KETOROLAC 0.5% OPHTH SOLN OD ONE; +KETOROLAC 0.5% OPHTH SOLN OS ONE; -LIDOCAINE 1% SDV 5 ML VIAL As Ordered ONE; -OFLOXACIN 0.3 % (OCUFLOX) OPTH SOL 5ML OD ONE; +OFLOXACIN 0.3 % (OCUFLOX) OPTH SOL 5ML OS ONE; -PHENYLEPHRINE 2.5% OPHTH SOL 2ML OD ONE; +PHENYLEPHRINE 2.5% OPHTH SOL 2ML OS ONE; -POVIDONE-IODINE 5% OPHTH PREP SOL 30ML As Ordered ONE; -PROPARACAINE 0.5% OPHTH SOL 15ML OD PRN; +PROPARACAINE 0.5% OPHTH SOL 15ML OS PRN; -TRIAMCINOLONE PRES FR 40 MG/ML 1ML(TRIESENCE)(OR EYE ONLY)(J3300 PER 1MG) As Ordered ONE; -TROPICAMIDE 1% OPHTH SOLN 2 ML OD ONE; +TROPICAMIDE 1% OPHTH SOLN 2 ML OS ONE
[2016-12-15 15:15] VITALS: BP 176/77
--- NOTE | 2016-12-16 06:28 | RO ---
DATE OF PROCEDURE: 12/15/2016 PREPROCEDURE DIAGNOSIS: Cataract of left eye. POSTPROCEDURE DIAGNOSIS: Cataract of left eye. PROCEDURE: Femtosecond laser and phacoemulsification of the intraocular lens with lens implantation left eye. SURGEON: Faby Patterson MD LAND SURVEYING PARTY CHIEF: None. ANESTHESIA: Local IV standby. FINDINGS: Cataract of left eye. COMPLICATIONS: None. DESCRIPTION OF PROCEDURE: The patient was brought to the operating room and laid in supine position. A lid speculum was placed, and patient was brought under the femtosecond laser. After the satisfactory placement of the patient interface, primary incision, secondary incision, and arcuate incisions with lens fragmentation was done without any complication per plan. The patients interface was then removed and lid speculum removed. Patient was placed under the microscope. The eye was prepped and draped in a sterile fashion for ophthalmic surgery. Lid speculum was placed. The secondary incision was opened, and EndoCoat was injected into the anterior chamber. The temporal clear corneal incision was then opened and capsulorrhexis removed, followed by hydrodissection. This was followed by phacoemulsification of the lens within the capsular bag. Cortical material was then aspirated, and Healon was injected into the capsular bag. Intraocular lens was then placed. Excess Healon was aspirated. Wound was hydrated. The lid speculum was removed, and patient was returned to the recovery room in stable condition. Addendum: Of note is that patient it was very difficult to do a scan on the patient, either the IOL master or the Sonomed prior. So at the end I chose to use a 21.5 diopter based on readings and the axial length from the intraocular lens (IOL) master.
== END | disposition home or self-care (01) ==
LOC: M SDC 11:53
PROVIDERS: ATTEND Ophthalmology
DX: H26.9 Unspecified cataract (principal); I10 Essential (primary) hypertension; E11.9 Type 2 diabetes mellitus without complications; M19.90 Unspecified osteoarthritis, unspecified site; Z79.899 Other long term (current) drug therapy; Z79.82 Long term (current) use of aspirin
CPT/HCPCS: 66984; J2250; J2280; J3010; J3300; V2632

== ENCOUNTER → 2017-03-04 | Outpatient (CLI) | payer MEDICARE, MEDICAID ==
[~2017-03-04] MED LIST changes: -ACETAMINOPHEN 325 MG TAB PO PRN; -AcetaZOLAMIDE 500 MG ER CAP PO ONE; -BSS with VANC/TOB/EPI for EYE CASES IR ONE; -CYCLOPENTOLATE 2% OPHTH SOLN OS ONE; -HEALON DUET (HEALON 10MG/ML 0.55ML & HEALON ENDOCOAT 30MG/ML 0.85ML) XX ONE; -KETOROLAC 0.5% OPHTH SOLN OS ONE; -LIDOCAINE 1% SDV 5 ML VIAL XX ONE; -LIDOCAINE 4% INJ 5 ML AMP OU ONE; -LIDOCAINE W/EPINEPHRINE 1% 20ML VIAL XX ONE; -MIDAZOLAM INJ 2 MG/2 ML VIAL (J2250) As Ordered ONE; -MOXIFLOXACIN IN BSS 0.25MG/0.25ML INTRACAMERAL INJ (OR EYE ONLY)(J2280) As Ordered ONE; -MOXIFLOXACIN IN BSS 0.25MG/0.25ML INTRACAMERAL INJ (OR EYE ONLY)(J2280) ICAM ONE; -OFLOXACIN 0.3 % (OCUFLOX) OPTH SOL 5ML OS ONE; -PHENYLEPHRINE 2.5% OPHTH SOL 2ML OS ONE; -PROPARACAINE 0.5% OPHTH SOL 15ML OS PRN; -TRIAMCINOLONE PRES FR 40 MG/ML 1ML(TRIESENCE)(OR EYE ONLY)(J3300 PER 1MG) IO ONE; -TRIMETHOBENZAMIDE 300 MG CAP PO PRN; -TROPICAMIDE 1% OPHTH SOLN 2 ML OS ONE; -fentaNYL 100 MCG/2 ML INJECTION (J3010) As Ordered ONE
[2017-03-04 08:41] LABS: CREATININE FOR GFR 1.42 MG/DL (0.55-1.02); GLOMERULAR FILTRATION RATE 38.1 (>39)
--- NOTE | 2017-03-04 11:13 | REP ---
MRI study of the left knee without contrast: History: Soft tissue mass medial aspect left knee. Technique: Sagittal, axial and coronal imaging planes utilized for T1, proton density and T2-weighted scans in the usual fashion with and without fat saturation. MRI findings: Cortical and medullary bone signal intensity are normal. There is osteoarthritic spurring affecting the medial tibiofemoral compartment and the patellofemoral compartment of the left knee. There is a large meniscal cyst centered at the medial joint line. This is predominantly deep to the medial collateral ligament. This meniscal cyst measures 4.3 x 3.6 x 2.5 cm. There is an extensive degenerative tear of the medial meniscus with medial meniscal extrusion and large anteromedial osteophytes. There is considerable joint space loss indicating severe chondromalacia in the medial compartment. A horizontal tear is also noted in the lateral meniscus without displaced meniscal material. There is evidence of an osteochondral loose body at the posterior medial joint space line. Posterior cruciate ligament appears intact. The anterior cruciate ligament is poorly seen on T2-weighted and T1-weighted scans suggesting an anterior cruciate ligament tear. Patellar and quadriceps tendons are intact. The medial collateral and lateral collateral ligament complex do not appear disrupted. There is mild chondromalacia in the patella and in the lateral compartment. Impression: 1. Large medial meniscal cyst with extensive degenerative tear medial meniscus. 2. Lateral meniscal tear. 3. 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 Mild patellofemoral and lateral compartment chondromalacia. 4. Old anterior cruciate ligament tear suspected. Signed by Dylan Magaña MD 03/04/2017 12:31 P
== END ==
LOC: M RAD 08:03
PROVIDERS: ATTEND Internal Medicine Rheumatology
DX: S83.241A Other tear of medial meniscus, current injury, right knee, initial encounter (principal); M25.862 Other specified joint disorders, left knee; X58.XXXA Exposure to other specified factors, initial encounter; Y92.89 Other specified places as the place of occurrence of the external cause; Y93.89 Activity, other specified; Y99.8 Other external cause status
CPT/HCPCS: 36415; 73723; 82565; 84520; A9576

== ENCOUNTER → 2017-04-22 | Outpatient (REF) | payer MEDICARE, MEDICAID ==
[2017-04-22 10:49] LABS: CALCIUM LEVEL 9.4 MG/DL (8.8-10.2); CREATININE FOR GFR 1.15 MG/DL (0.55-1.02); GLOMERULAR FILTRATION RATE 48.5 (>39)
[2017-04-22 11:00] LABS: POTASSIUM SERUM 5.6 MEQ/L (3.5-5.1)
== END ==
LOC: M SFHCPLAZ 08:43
PROVIDERS: ATTEND Family Medicine
DX: I16.0 Hypertensive urgency (principal)
CPT/HCPCS: 36415; 80048; 81001; 82043; G0463